=== PATIENT | male | born 1960 | race Caucasian/White ===

== ENCOUNTER 2018-01-26 01:36 | Inpatient (IN) | payer OTHER ==
[2018-01-25 14:03] LABS: INR 1.01
--- NOTE | 2018-01-25 14:44 | RADIOLOGY IMAGING REPORT ---
[place] [facility] [place] NAME: Nilton Bowling : 1960 MR: [id number] V: [id number] EXAM DATE: ORDERING PHYSICIAN: ROCIO PUENTES TECHNOLOGIST: Location: [facility] Patient: Nilton Bowling : 1960 Visit/Account:[id number] Date of Sevice: 01/25/2018 LEGS BILAT STANDING HIPS-ANKLE Indication: Preoperative. Comparison: None. Findings: Right leg length: 91.6 cm. This is measured from the cephalad portion of the femoral head to the tib ial distal articular surface. Right femur measurement from the superior margin of the femoral head t o the medial femoral condyle is 51.2 cm.. The right tibia measures 39.6 cm from the medial tibial pl ateau to the medial tibial plafond. Left leg measurement: 87.2 cm. The left femur measures 48.8 cm from the superior margin of the left femoral head to the medial femoral condyle. The left tibia measures 38.4 cm from the medial tibial p lateau to the medial tibial plafond. Severe degenerative changes are seen in the left knee joint. There are postoperative changes from a right total knee arthroplasty. Impression: Leg length as above. Report Dictated By: Rafael Alves at 01/25/2018 2:34 PM Report E-Signed By: Rafael Alves at 01/25/2018 2:40 PM WSN:[id number]
[2018-01-26] VITALS (13 sets, daily range): BP systolic 106–152; BP diastolic 44–86
[~2018-01-26] VITALS: Ht 175.3 cm; Wt 120.2 kg
[~2018-01-26 01:36] MED LIST: ACET-1966 PO; AMLO-99 PO; ATEN-1 PO; ATOR40TA24 PO; BUPR-136 PO; CEPH500T7 PO; CITA-145 PO; HYDR-385 PO; LISI-374 PO; METO50TA19 PO; MULT1CAP59 PO; RANI-366 PO
[2018-01-26] MEDS ORDERED: MIDAZOLAM 2 MG/2 ML VIAL IVP PRN (13:00)
[2018-01-26] MEDS ORDERED: cloNIDine EPIDUR INJ 100MCG/ML 40 MCG, ROPIVACAINE 0.5% 20 ML VIAL 25 ML, EPINEPHrine H... INJ ONE (13:00)
[2018-01-26] MEDS ORDERED: CELECOXIB 200 MG CAP PO ONE (13:00)
[2018-01-26] MEDS ORDERED: PREGABALIN 150 MG CAPSULE PO ONE (13:00)
[2018-01-26] MEDS ORDERED: LIDOCAINE/SOD BICARB 8.4% SYR ID ONE (13:00)
[2018-01-26] MEDS ORDERED: ACETAMINOPHEN 500 MG TAB PO ONE (13:00)
[2018-01-26] MEDS ORDERED: NORMOSOL R SOLN(*) 1000 ML BAG 1,000 ML IV PRN (13:00)
[2018-01-26] MEDS ORDERED: TRANEXAMIC AC 1000 MG/10ML SDV 1,000 MG in DEXTROSE 5% 50 ML BAG 50 ML IV ONE (13:00)
[2018-01-26] MEDS ORDERED: PROPOFOL EMUL(*) 10MG/ML 20 ML 20 ML ONE (13:01)
[2018-01-26] MEDS ORDERED: fentaNYL CITR 250 MCG/5 ML AMP ONE (13:01)
[2018-01-26] MEDS ORDERED: LIDOCAINE 2% IV 100 MG/5ML SYR ONE (13:01)
[2018-01-26] MEDS ORDERED: VANCOMYCIN(*) 1 GM VIAL 1 GM, VANCOMYCIN HCL 0.750 GM VIAL 0.75 GM in NS(*) 0.9% 250 ML... IVPB ONE (13:05)
[2018-01-26] MEDS ORDERED: BUPIVACAINE 0.5% INJ 30ML VIAL ONE (15:00)
[2018-01-26] MEDS ORDERED: EPINEPHrine HCL 1 MG/ML AMP ONE (15:15)
[2018-01-26] MEDS ORDERED: DEXAMETHASONE SOD PHOS 10MG/ML ONE (15:17)
[2018-01-26] MEDS ORDERED: ONDANSETRON 4 MG/2 ML VIAL ONE (15:17)
[2018-01-26] MEDS ORDERED: KETAMINE HCL 200 MG/20 ML MDV ONE ×2 (15:55→16:50)
[2018-01-26] MEDS ORDERED: fentaNYL CITR 100 MCG/2 ML AMP ONE (17:14)
[2018-01-26] MEDS ORDERED: diphenhydrAMINE 25 MG CAP PO PRN (19:20)
[2018-01-26] MEDS ORDERED: FLUSH 10 ML SYR IVP PRN (19:20)
[2018-01-26] MEDS ORDERED: NALOXONE HCL 0.4 MG/ML VIAL IVP PRN (19:20)
[2018-01-26] MEDS ORDERED: ONDANSETRON 4 MG/2 ML VIAL IVP PRN (19:20)
[2018-01-26] MEDS ORDERED: PROMETHAZINE 25 MG/ML 1 ML AMP IVP PRN (19:20)
[2018-01-26] MEDS ORDERED: KCL/D5LR 20 MEQ/1000 ML PREMIX 1,000 ML IV PRN (19:20)
[2018-01-26] MEDS ORDERED: MAGNESIUM CITRATE 300 ML BTL PO PRN (19:20)
[2018-01-26] MEDS ORDERED: MORPHINE SULFATE 30 MG PCA IV PRN (19:20)
[2018-01-26] MEDS ORDERED: ACETAMINOPHEN 500 MG TAB PO PRN (19:20)
--- NOTE | 2018-01-26 19:25 | RADIOLOGY IMAGING REPORT ---
[place] [facility] [place] Nilton Bowling : 1960 MR: [id number] V: [id number] EXAM DATE: ORDERING PHYSICIAN: ROCIO PUENTES TECHNOLOGIST: Location: [facility] - [place], [place] Patient: Nilton Bowling : 1960 Visit/Account:[id number] Date of Sevice: 01/26/2018 INDICATION: . Postop DATE: 01/26/2018 7:21 PM. TECHNIQUE: KNEE LIMITED LEFT COMPARISON: Radiographs January 25, 2018 FINDINGS: Status post total knee arthroplasty. The hardware appears appropriately aligned without thalia dence of periprosthetic fracture. Soft tissue gas is as expected postoperatively. IMPRESSION: Expected appearance status post total knee arthroplasty. Report Dictated By: Margarito Duggan MD at 01/26/2018 7:21 PM Report E-Signed By: Margarito Duggan MD at 01/26/2018 7:23 PM WSN:[id number]
--- NOTE | 2018-01-26 19:33 | OPERATIVE REPORT 1 ---
EVENT DATE: January 26, 2018 SURGEON: Rony Gillespie MD ANESTHESIOLOGIST: Neftaly Osorio MD ANESTHESIA: General plus Duramorph spinal. PERSONNEL ASSISTANT: Lan Gibbs PA-C PREOPERATIVE DIAGNOSIS Left knee degenerative joint disease, status post prior complex trauma with a tibia-fibula fracture and distal femoral fracture with multiple subsequent surgeries resulting in medially deviated and anteriorly deviated femoral condyle as a malunion in association with good alignment of the tibia with multiple shelves of bony irregularities in the metaphysis. POSTOPERATIVE DIAGNOSIS Left knee degenerative joint disease, status post prior complex trauma with a tibia-fibula fracture and distal femoral fracture with multiple subsequent surgeries resulting in medially deviated and anteriorly deviated femoral condyle as a malunion in association with good alignment of the tibia with multiple shelves of bony irregularities in the metaphysis. PROCEDURE PERFORMED Left total knee arthroplasty using an atypical intramedullary approach through the lateral femoral condyle with revision stem of tibia due to irregularity of metaphysis (modifier for additional complexity). ESTIMATED BLOOD LOSS 150 INTRAVENOUS FLUIDS Crystalloid 1700, no colloid. TOURNIQUET TIME 118 minutes SPECIMENS No specimens. COMPLICATIONS No complications. IMPLANTS USED Attune femoral size 8 left, cemented, posterior stabilized femur. Size 8, cemented tibial rotating platform baseplate, revision base. A 35 mm anatomic patella. A size 8 x 8 mm rotating platform, posterior stabilized insert. SUMMARY OF PROCEDURE The patient was brought into the operating room and was placed on the OR table in the seated position. He was given a spinal and then placed in the supine position where he received general anesthetic. The left lower extremity was prepped and draped in the usual sterile fashion. We exsanguinated the limb and inflated the tourniquet. We utilized the anterior previous incision. He had multiple incisions on his leg. This was taken down through skin and subcutaneous tissue and into the capsule by a medial parapatellar arthrotomy. Fluid was clear. There was abundant arthritic change with large osteophytes. 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 We had used long-plate films to gauge a 6 mm cut, but it appeared that to get intramedullary guidance, we would need to go directly through the lateral femoral condyle and somewhat more posterior than normal, so a drill hole was created here, and we applied the femoral gilbert which had good transit directly off the shaft. With this in place, we then set the cutting block to cut 9 mm off the end of the bone, but of course, it was laterally translated, so we set the block and then placed additional drill pins throughout the central part of the knee so it would stabilize even without lateral support. Once this was done , we made our distal femoral cut at 9 mm, cutting 6 degrees off the axis. Cutting block confirmed that it was flat. We then excised a large part of the fat pad and some meniscus tissue that was very tight. There was a lot of scar tissue throughout the joint. There was abundant osteophyte formation over the femoral condyles and in the notch. The ACL had been divided, and the lateral patellofemoral ligament was also divided, but he was still quite tight. We took great care to avoid damage to the patellar tendon as it was at risk with the degree of tightness that he had. We then sized the knee, but here again, this was a challenge. The normal sizing tool would not reach the femoral shaft as it was too far posterior relative to the anteriorly transposed portion of condyle, so we had to actually gauge the size of the femur using trial blocks and cuts. We used the trial block after sizing with the actual trials. Based on the condylar size, we selected an 8. It appeared that the 8 would be adequate for tgzjsz-ca-[id number] dimension, but it would probably be a bit tall anterior to posterior, especially considering the position of the condyles. In any case, we made our distal cut, but then moved to the tibia so we could check our extension and flexion blocks. Intramedullary guidance was obtained through the tibia. Palpating through the skin, it was a bit challenging to get in because there were multiple layers of what appeared to be cortical bone down inside the medullary canal and metaphysis. We did punch down through it and then set rotation. When we used the slotted guide to check our position, the eburnated medial side was selected as our first landmark. We selected 2 mm below this, but that was not even close to deep enough on the lateral side. In fact, it appeared that both medial and lateral sides were almost identical, so we ended up selecting 8 mm cuts off both sides, which was actually quite challenging because of the amount of scar tissue along the lateral flange of the tibia. Once we had this completed, we were able to lift the femur up using a suitcase handle retractor and cleared the posterior tissue where there was quite a bit of bony spur and loose bodies. With this completed, we then checked our extension and flexion blocks. The extension block looked like it was set quite nicely for a 7 to 8 mm insert, but when we went into flexion, it was clearly quite loose, and that is why we did check it in this technique. Because we had the capacity to move the femur quite a ways posteriorly because of the anteriorly transposed condyles , we ended up selecting an 8 for the lezkxz-fh-[id number] dimension, but moving it inferiorly a moderate amount so that we could close the flexion gap. Once we had trialed this a few times, we then made our femoral cuts to coordinate. It was still clearly not cutting enough of the femur anteriorly and posteriorly compared to what we normally see, but it would give good stability and, therefore, we used this. We trialed. It looked well, so we drilled our lug holes, and then we also cut the box for the posterior stabilized elements. At this point, we then completed the tibial cut. It looked like a size 8 would be best. Because we felt that he was young enough to be using this quite a bit, in the event that it became loose later, but it only involved the femur, if we already had a revision stem on the tibia, then we could use it without removing it. In addition to that, it would give us the benefit of getting the stem directly cross all the irregular bone in the metaphysis of the tibia. Initially when we tried drilling for the tibial stem, it would not pass, but then we were able to punch through these cortical fragments that were inside the medullary canal, and we got down to the full depth. We trialed, and it looked like an 8 would fit well. It seemed like we had to adjust it for the posterior gap quite nicely since he was relatively stable. He still was a little bit looser in flexion than in extension, but he came to nice extension with good stability at 20 degrees and at zero. The patella measured 23. We cut 9.5 off and then placed an anatomic trial 35 after drilling lug holes. With all trials in place and an 8 mm insert, he seemed to have good tracking and good stability. Consequently, these implants were removed, and we prepared to cement. Blocks were placed at the tibia and the femur to minimize extrusion of cement down the canal. We irrigated and then mixed cement. The cement was packed deep down inside the medullary canal for the stem and then along the margins of the surface, and we impacted it into position and held pressure. We then began to prepare for the femur, but oddly, the cement began to polymerize at about about 7-1/2 minutes. It is possible we could have gone throughout the rest of this implant without problem, but it looked to me like we would probably run out of time, and consequently, I asked to mix a second batch, and then we finished the femur and the patella. With this complete, we waited for polymerization and then let the tourniquet down at 118 minutes. Additional TXA was given. The wound was irrigated, and then we controlled bleeding with cautery. We trialed with the 8, and it looked like that was a good fit, so we placed the final 8 mm PS RP insert. After final irrigation, we closed with #1 Vicryl for the capsular closure and then used 3-0 Vicryl and 4-0 Monocryl for the skin closure. He was given a dry, sterile dressing and an anterior Dermabond strip. He was then awakened and transferred to the recovery area in stable condition. SHAVON
[2018-01-26] MEDS ORDERED: ACET-2146 PO (19:57)
[2018-01-26] MEDS ORDERED: ATEN-1 PO (20:09)
--- NOTE | 2018-01-26 20:34 | Hospitalist Progress Note ---
Subjective Progress Notes Subjective 57 yr old male with Left TKA today due to previous trauma and DFD. PMH is significant for hypertension, hyperlipidemia, depression and anxiety, overweight , previous smoker. Physical Exam Vital Signs Date Time Temp Pulse Resp B/P (MAP) Pulse Ox O2 Delivery O2 Flow Rate FiO2 01/26/18 19:45 89 16 94 01/26/18 12:44 97.7 139/84 (102) Room Air Intake and Output 01/27/18 07:00 Intake Total 4000 ml Output Total 100 ml Balance 3900 ml Intake Oral 500 ml IV Total 1750 ml Other 1750 ml Output Estimated Blood Loss 100 ml General Appearance: Alert, Awake, No Acute Distress, Afebrile Cardiovascular: Regular Rate and Rhythm, Other (S1S2 are normal. No murmur, gallop or rub. ) Respiratory: Clear to Auscultation GI: Soft and Non-Tender Extremities: Pulses, Perfused Psych: Alert & Oriented X3, Appropriate Mood & Affect Result Diagram: 01/26/18 8104 Assessment and Plan Problems: (1) Status post total knee replacement, left Status: Acute Assessment & Plan: See Dr. Gillespie for details. Anticoagulation as per Dr. Escudero with Aspirin. (2) Hypertension Status: Chronic Assessment & Plan: Well controlled with three meds including atenolol 100 mg / day, amlodipine 10 mg a day, and lisinopril 40 mg a day. He takes these all in the morning. Will monitor BP carefully and resume meds when BP allows. (3) Hyperlipemia Status: Chronic Assessment & Plan: Continue lipitor 40 mg daily. (4) Depression with anxiety Status: Chronic Assessment & Plan: Contrinue celexa 20 mg daily. He has zofran ordered for nausea so will discontinue that due to risk of prolonged QT and arrhythmias. (5) GERD (gastroesophageal reflux disease) Status: Chronic Assessment & Plan: Continue zantac prn. (6) H/O major orthopedic surgery Status: Chronic Assessment & Plan: Multiple (7) COPD (chronic obstructive pulmonary disease) Status: Chronic Assessment & Plan: Due to smoking. Quit 09/10. Will follow O2 sats carefully and also monitor for sleep apnea. Time Spent on Plan of Care: > 30 min FAUSTINA HYMAN MD FACP Jan 26, 2018 20:34
[2018-01-26] MEDS: RANITIDINE HCL 150 MG TAB PO PRN (23:38)
[2018-01-27] VITALS (8 sets, daily range): BP systolic 100–115; BP diastolic 58–85; Ht 175.3 cm; Wt 120.2 kg
[2018-01-27 06:23] LABS: PLATELET COUNT, AUTOMATED 134 K/uL (150-450)
[2018-01-27] MEDS: LISINOPRIL 20 MG TAB PO SCH (08:33)
[2018-01-27] MEDS: ATENOLOL 50 MG TAB PO SCH (08:33)
[2018-01-27] MEDS: amLODIPine BESYL(*) 5 MG TAB PO SCH (08:33)
[2018-01-27] MEDS: ASPIRIN 325 MG TAB PO SCH (09:20)
--- NOTE | 2018-01-27 11:12 | Hospitalist Progress Note ---
Subjective Progress Notes Subjective 57M admitted after L TKA. Doing well working with pt this am in [facility]. Patient Complains of: Neurological: No: Syncope, Confusion Cardiovascular: No: Chest Pain, Palpitations Respiratory: No: Cough, Congestion Gastrointestinal: No Nausea Physical Exam Vital Signs Date Time Temp Pulse Resp B/P (MAP) Pulse Ox O2 Delivery O2 Flow Rate FiO2 01/27/18 08:06 83 01/27/18 07:57 Nasal Cannula 2.0 01/27/18 07:24 98.0 82 16 115/71 (86) Intake and Output 01/28/18 07:00 Intake Total 400 ml Output Total 200 ml Balance 200 ml Intake Oral 400 ml Output Urine Total 200 ml # Voids 1 General Appearance: Alert, Awake, No Acute Distress Neuro: No Gross deficits Eyes: PERRLA ENT: Normal Neck: No Masses Cardiovascular: Normal Rhythm & Peripheral Pulses Respiratory: No Respiratory Distress Chest: No Tenderness : Normal Lymph: Cervical Nodes Benign Musculoskeletal: No Weakness/Pain Extremities: Soft and Non Tender (L knee wrapped), Warm Integumentary: Skin Intact without Lesion / Mass Psych: Alert & Oriented X3 Result Diagram: 01/27/18 0519 Assessment and Plan Problems: (1) Status post total knee replacement, left Status: Acute Assessment & Plan: See Dr. Gillespie for details. Anticoagulation as per Dr. Escudero with Aspirin. (2) Hypertension Status: Chronic Assessment & Plan: Well controlled with three meds including atenolol 100 mg / day, amlodipine 10 mg a day, and lisinopril 40 mg a day. He takes these all in the morning. Will monitor BP carefully and resume amlodipine and lisinopril when BP allows. Resume BB today. (3) Hyperlipemia Status: Chronic Assessment & Plan: Continue lipitor 40 mg daily. (4) Depression with anxiety Status: Chronic Assessment & Plan: Contrinue celexa 20 mg daily. (5) GERD (gastroesophageal reflux disease) Status: Chronic Assessment & Plan: Continue zantac prn. (6) H/O major orthopedic surgery Status: Chronic Assessment & Plan: Multiple (7) COPD (chronic obstructive pulmonary disease) Status: Chronic Assessment & Plan: Due to smoking. Quit 09/10. Exam Sepsis Risk: No Definite Risk NICOLETTE IRVIN DO Jan 27, 2018 11:12
[2018-01-27] MEDS ORDERED: ATENOLOL 50 MG TAB PO ONE (11:15)
[2018-01-27] MEDS: RANITIDINE HCL 150 MG TAB PO PRN (15:27)
[2018-01-27] MEDS: CITALOPRAM HYDROBROM 20 MG TAB PO SCH (21:22)
[2018-01-28 04:28] VITALS: BP 108/64
[2018-01-28 05:28] LABS: PLATELET COUNT, AUTOMATED 113 K/uL (150-450)
[2018-01-28 07:06] VITALS: BP 101/65
[2018-01-28] MEDS: LISINOPRIL 20 MG TAB PO SCH (07:59)
[2018-01-28] MEDS: amLODIPine BESYL(*) 5 MG TAB PO SCH (07:59)
[2018-01-28] MEDS ORDERED: ASPI-757 PO (08:13)
[2018-01-28] MEDS: ATENOLOL 50 MG TAB PO SCH (08:58)
[2018-01-28] MEDS: ASPIRIN 325 MG TAB PO SCH (09:06)
[2018-01-28] MEDS: CITALOPRAM HYDROBROM 20 MG TAB PO SCH (09:06)
--- NOTE | 2018-01-28 09:47 | Hospitalist Progress Note ---
Subjective Progress Notes Subjective No cp/sob. Physical Exam Vital Signs Date Time Temp Pulse Resp B/P (MAP) Pulse Ox O2 Delivery O2 Flow Rate FiO2 01/28/18 07:06 97.9 66 18 101/65 (77) 89 Nasal Cannula 0.5 General Appearance: Alert, Awake, No Acute Distress Result Diagram: 01/28/18 0508 01/28/18 0508 Assessment and Plan Problems: (1) Status post total knee replacement, left Status: Acute Assessment & Plan: See Dr. Gillespie for details. ASA 325mg a day for 30 days for blood clot prevention. (2) Hypertension Status: Chronic Assessment & Plan: Well controlled with three meds including atenolol 100 mg / day, amlodipine 10 mg a day, and lisinopril 40 mg a day. He takes these all in the morning. BP still too low to restart. He has been instructed to check his blood pressure every morning with his cuff and add back in a step gramajo fashion. See orders. This was explained to the patient and he expressed understanding. (3) Hyperlipemia Status: Chronic Assessment & Plan: Continue lipitor 40 mg daily. (4) Depression with anxiety Status: Chronic Assessment & Plan: Contrinue celexa 20 mg daily. (5) GERD (gastroesophageal reflux disease) Status: Chronic Assessment & Plan: Continue zantac prn. (6) H/O major orthopedic surgery Status: Chronic Assessment & Plan: Multiple (7) COPD (chronic obstructive pulmonary disease) Status: Chronic Assessment & Plan: Due to smoking. Quit 09/10. Exam Sepsis Risk: No Definite Risk SHAMA ROSEN MD Jan 28, 2018 09:47
[2018-01-28] MEDS ORDERED: OXYC5TAB38 PO (09:58)
== END 2018-01-28 10:40 | disposition home or self-care (01) | DRG 470 ==
LOC: OR 01:36 → MED 19:45
PROVIDERS: ADMIT Orthopaedic Surgery Hand Surgery; ATTEND Orthopaedic Surgery Hand Surgery
PROC: 0SRD0JZ Replacement of Left Knee Joint with Synthetic Substitute, Open Approach (ICD-10-PCS; principal; 2018-01-26 15:02)
DX: M17.32 Unilateral post-traumatic osteoarthritis, left knee (principal); S72.41 Unspecified condyle fracture of lower end of femur; M25.762 Osteophyte, left knee; E66.01 Morbid (severe) obesity due to excess calories; I10 Essential (primary) hypertension; K21.9 Gastro-esophageal reflux disease without esophagitis; E78.5 Hyperlipidemia, unspecified; F32.9 Major depressive disorder, single episode, unspecified; J44.9 Chronic obstructive pulmonary disease, unspecified; Z68.39 Body mass index [BMI] 39.0-39.9, adult; Z90.49 Acquired absence of other specified parts of digestive tract; Z87.891 Personal history of nicotine dependence
CPT/HCPCS: 36415; 77073; 82310; 82374; 82435; 82565; 82947; 84132; 84295; 84520; 85014; 85018; 85025; 85610; 86850; 86900; 86901; 97161; C1713; C1776; J0171; J0735; J1100; J1885; J2001; J2250; J2405; J2704; J2795; J3010; J3370; J3490; J7050; J7060; Q0163

== ENCOUNTER 2018-07-27 02:13 | Inpatient (IN) | payer OTHER ==
[2018-07-26 15:15] LABS: INR 0.96
[2018-07-27] VITALS (12 sets, daily range): BP systolic 124–151; BP diastolic 77–103
[~2018-07-27] VITALS: Ht 177.8 cm; Wt 122.9 kg
[~2018-07-27 02:13] MED LIST changes: +ACET-2146 PO; +AMLO-127 PO; -AMLO-99 PO; +ASPI-757 PO; +OXYC5TAB38 PO
[2018-07-27] MEDS ORDERED: CELECOXIB 200 MG CAP PO ONE (06:15)
[2018-07-27] MEDS ORDERED: PREGABALIN 150 MG CAPSULE PO ONE (06:15)
[2018-07-27] MEDS ORDERED: LIDOCAINE/SOD BICARB 8.4% SYR ID ONE (06:15)
[2018-07-27] MEDS ORDERED: ACETAMINOPHEN 500 MG TAB PO ONE (06:15)
[2018-07-27] MEDS ORDERED: ROPIVACAINE/EPI/CLONIDINE/KET 50 ML SYRINGE INJ ONE (06:15)
[2018-07-27] MEDS ORDERED: MIDAZOLAM 2 MG/2 ML VIAL IVP PRN (06:15)
[2018-07-27] MEDS ORDERED: ceFAZolin(*) 2GM/D5W 50ML 50 ML IVPB ONE (06:15)
[2018-07-27] MEDS ORDERED: NORMOSOL R SOLN(*) 1000 ML BAG 1,000 ML IV PRN (06:15)
[2018-07-27] MEDS ORDERED: TRANEXAMIC AC 1000 MG/10ML SDV 1,000 MG in DEXTROSE 5% 50 ML BAG 50 ML IV ONE (06:15)
[2018-07-27] MEDS ORDERED: FAMOTIDINE 20 MG TAB PO ONE (07:10)
[2018-07-27] MEDS ORDERED: VANCOMYCIN(*) 1 GM VIAL 2 GM in NS(*) 0.9% 250 ML BAG 250 ML IVPB ONE (07:10)
[2018-07-27] MEDS ORDERED: NS 0.9% IVPB ONE (07:10)
[2018-07-27] MEDS ORDERED: VANCOMYCIN IVPB ONE (07:10)
[2018-07-27] MEDS ORDERED: amLODIPine BESYL(*) 5 MG TAB PO SCH (07:10)
[2018-07-27] MEDS ORDERED: MIDAZOLAM 2 MG/2 ML VIAL ONE (07:43)
[2018-07-27] MEDS ORDERED: ONDANSETRON 4 MG/2 ML VIAL ONE (09:06)
[2018-07-27] MEDS ORDERED: ROCURONIUM BROM 10 MG/ML 10 ML ONE (09:06)
[2018-07-27] MEDS ORDERED: DEXAMETHASONE SOD PHOS 10MG/ML ONE (09:06)
[2018-07-27] MEDS ORDERED: PROPOFOL EMUL(*) 10MG/ML 20 ML 20 ML ONE (09:06)
[2018-07-27] MEDS ORDERED: SUGAMMADEX SOD 200 MG/2 ML SDV ONE (09:53)
[2018-07-27] MEDS ORDERED: fentaNYL CITR 100 MCG/2 ML AMP ONE ×2 (10:22→10:39)
[2018-07-27] MEDS ORDERED: OXYC10TA67 PO (10:55)
--- NOTE | 2018-07-27 11:10 | RADIOLOGY IMAGING REPORT ---
FACILITY: [facility] [place] PATIENT NAME: Nilton Bowling : 1960 MR: [id number] V: [id number] EXAM DATE: ORDERING PHYSICIAN: ROCIO PUENTES TECHNOLOGIST: Location: [facility] Patient: Nilton Bowling : 1960 Visit/Account:[id number] Date of Sevice: 07/27/2018 Exam type: SHOULDER 1 VIEW RIGHT History: S/P R SHOULDER JULIETTE, CONVERSION REVERSE TSA Comparison: None. Findings: A single AP view of the right shoulder demonstrates a reversed right shoulder arthroplasty that appea rs in good anatomic alignment on this single AP view. There is blunting of the right costophrenic an gle and small amount linear stranding in the visualized right lung base. These changes could be scientific aide nicole although a small right pleural effusion and right basilar airspace consolidation not excluded. IMPRESSION: 1. As above Report Dictated By: Ebonie Guajardo MD at 07/27/2018 11:03 AM Report E-Signed By: Ebonie Guajardo MD at 07/27/2018 11:04 AM WSN:[id number]
--- NOTE | 2018-07-27 11:18 | OPERATIVE REPORT 1 ---
EVENT DATE: July 27, 2018 SURGEON: Rony Gillespie MD ANESTHESIOLOGIST: Dago Brown MD ANESTHESIA: General plus block. ENSEMBLE MEMBER: MARIVEL Khan PREOPERATIVE DIAGNOSIS Status post cuff tear arthropathy with CTA head yielding good range of motion, but persistent pain. POSTOPERATIVE DIAGNOSIS Status post cuff tear arthropathy with CTA head yielding good range of motion, but persistent pain. PROCEDURE PERFORMED Explantation of CTA humeral head with conversion to reverse total shoulder arthroplasty including placement of Metaglene and Glenosphere and implantation of polyethylene +6 cup on humerus (32577). ESTIMATED BLOOD LOSS 50. IV FLUIDS 1200 Crystalloid, no colloid. TOURNIQUET TIME None. SPECIMENS None. COMPLICATIONS None. IMPLANTS USED Metaglene plus 4 screws, 3 locking, 1 nonlocking with an eccentric 42 Glenosphere and a 42 +6 cup. DESCRIPTION OF PROCEDURE The patient was brought into the operating room and placed on the OR table in supine position. He was given a scalene block and a general anesthetic. He was placed in the beach chair position and his right shoulder was prepped and draped in the usual sterile fashion, free draping the arm. He had previously had an anterolateral superior approach (Shyann type) because of prior incisions, so we did reopen this again, split the deltoid anterior from lateral and did only a very small amount of dissection to remove deltoid from the acromion anteriorly. He had already had quite a bit of procedural work on the subacromial space due to two prior rotator cuff repairs before his index surgery on the CTA head and we do not want to take any more of this. The head was dislocated anterosuperiorly and we began to work around it to free up any soft tissue. We took care to maintain the subscapularis. Eventually, we got adequate exposure and began to work on removing the head to separate the Hadley taper, but this was surprisingly difficult. I started with a tamp to hit it with a hammer but that was not working, so we tried an extraction tool with a slap hammer and repeatedly hit on this and I think it did probably loosen a little bit, but it did not come off, but when I returned to the use of a tamp and a mallet, it did actually separate at the Hadley taper. The other portion of the implant in the stem was still intact and there was no fracture. We retracted it out of the way and then began to work on the glenoid doing circumferential stripping of the tissue. The very inferior most area near where then axillary nerve would be was left intact, but we did have enough release to get the rabbit ear retractor beneath it and to expose the glenoid. The wire was placed. We milled it down and then did the superior milling and then placed the drill centrally, after which the Metaglene was placed and we did three locking screws and one nonlocking screw. After this, we prepared to place the Glenosphere but this was a substantial challenge. We tried several different retractors to keep it sufficiently out of the way to allow placement of the Glenosphere, since the humeral implant was still in place. We were able to get this in and secure it down eccentric 42 Glenosphere. We then trialed a +3 and a +6. It looked like the +6 fit the best and then we cleaned the wound one more time, having irrigated as we had throughout the case and placed the +6 final implant. This was then reduced and the we irrigated one more time, did a deltoid repair with 2 transosseous drill holes using FiberWire suture, followed by 0 Vicryl suture to close the deltoid and the pseudocapsule in one layer. The wound was irrigated one more time before closing subcutaneous tissue with 3-0 Vicryl, then a 4-0 Monocryl completed the closure with a liquid adhesive applied. He was awakened and transferred to the recovery area in stable condition. The plan was for him to go home, but we could convert this to a short stay if he chose to do so. SHAVON
[2018-07-27] MEDS ORDERED: ALBUTEROL/IPRATROPIUM 3 ML NEB NEB ONE (12:50)
[2018-07-27] MEDS ORDERED: MAGNESIUM CITRATE 300 ML BTL PO PRN (13:55)
[2018-07-27] MEDS ORDERED: FLUSH 10 ML SYR IVP PRN (13:55)
[2018-07-27] MEDS ORDERED: ONDANSETRON 4 MG/2 ML VIAL IVP PRN (13:55)
[2018-07-27] MEDS ORDERED: ACETAMINOPHEN 500 MG TAB PO PRN (13:55)
[2018-07-27] MEDS ORDERED: KCL/D5LR 20 MEQ/1000 ML PREMIX 1,000 ML IV PRN (13:55)
[2018-07-27] MEDS ORDERED: PROMETHAZINE 25 MG/ML 1 ML AMP IVP PRN (13:55)
--- NOTE | 2018-07-27 14:00 | NUR ---
1125 SBAR REPORT FROM Woo DORAN RN. VSS, ELEVATED BP CONSISTENT WITH PRE-OP, 750ML UP, IV NOT RUNNING, FLUSHED IV, PATENCY RETURNED. 1135 SBAR REPORT TO Oleg HAMILTON, RN 1210 RESUMED CARE FOR PT, SBAR FROM Constantine ELLIS, RN 1230 ORTHOSTATICS STABLE, PT UP TO VOID, STEADY ON FEET, NEW ICE APPLIED TO SITE, PT CONTINUES TO DROP IN O2 ON 3LNC [address] MARINA RE: PLAN FOR O2, VO FOR AEROBIKA AND DUONEB, ORDERED 1300 RESPIRATORY AT BEDSIDE, NOT IMPROVEMENT NOTED 1315 VSS, PT CONTINUES TO DROP TO 87% ON 3L, TOLERATING MORE PUDDING AND APPLE JUICE 1330 BUMPED UP TO 4L, PT DOES NOT DROP, STAYS LOW 90S. SPOKE WITH DR. PUENTES AND DR. MARINA ABOUT ADMITTING PT. BOTH AGREE. PROCESS INITIATED BY Woo NANCE AND Oleg HAMILTON, RNS 1345 PCS TO FLOOR FOR ROOM AND GUEST HOUSE FOR PT'S MOTHER
--- NOTE | 2018-07-27 14:39 | NUR ---
1410 CALLED REPORT TO DONALD HEIN, REASSESSED, PREPARED FOR TRANSFER. H/H RESULTS REVIEWED, WNL 1420 PT TRANSFERRED VIA CART BY Oleg HAMILTON TO MED SURG ROOM. ALL BELONGINGS WITH PT
[2018-07-27] MEDS ORDERED: RANITIDINE HCL 150 MG TAB PO PRN (16:30)
--- NOTE | 2018-07-27 16:38 | Hospitalist Consultation ---
History of Present Illness Requesting Physician Dr. Gillespie Reason for Consult Medical Management Chief Complaint s/p right reverse total shoulder History of Present Illness He was admitted s/p right reverse total shoulder. It is reported the surgery went well and without complication. History Problems: (1) Hypertension Status: Chronic (2) Depression with anxiety Status: Chronic (3) GERD (gastroesophageal reflux disease) Status: Chronic (4) Hyperlipemia Status: Chronic Home Meds Reported Medications Oxycodone Hcl 10 Mg Tab (OXYCODONE HCL 10 MG TAB) 10 Mg Tablet, 5-10 MG PO Q4-6H PRN for PAIN, TAB 07/27/18 Acetaminophen 500 Mg Tab (ACETAMINOPHEN EXTRA STRENGTH) 500 Mg Tablet, 1000 MG PO Q4-6H PRN for PAIN, TAB 01/26/18 Bupropion Hcl (BUPROPION HCL SR) 150 Mg Tablet.er, 150 MG PO BID for TO HELP QUIT SMOKING 01/22/18 Ranitidine Hcl (ZANTAC) 150 Mg Tablet, 150 MG PO BID PRN for GAS/HEARTBURN, TAB 01/22/18 Multivitamin (MULTIVITAMINS) 1 Each Capsule, 1 EACH PO QDAY, CAPSULE 02/28/17 Citalopram Hydrobromide (CITALOPRAM HBR) 20 Mg Tablet, 20 MG PO QDAY, #5 TAB 12/21/16 Lisinopril (LISINOPRIL) 40 Mg Tablet, 40 MG PO QDAY, TAB 12/21/16 Amlodipine Besylate (AMLODIPINE BESYLATE) 10 Mg Tablet, 1 TAB PO QDAY, TAB 12/21/16 Atorvastatin Calcium (LIPITOR) 40 Mg Tablet, 1 TAB PO QDAY, TAB 12/21/16 Allergies: Coded Allergies: No Known Drug Allergies (Unverified , 12/21/16) Patient History: FH: HTN (hypertension) MOTHER FH: esophageal cancer FATHER, , Age:60 years and older Heart valve abnormality BROTHER OR SISTER BROTHER OR SISTER Hx Smoking: Yes (1PPD X30YRS, QUIT AUGUST 2017 ) Smoking Status: Current: Every Day Smoker, Former Smoker Exposure to Second Hand Smoke?: Yes When Quit Tobacco?: AUGUST 2017 Caffeine Intake: Coffee, Soda Caffeine/Cups Per Day: 3/DAY Hx Alcohol Use: No Hx Substance Use Disorder: No Social Drug Use: Former History of IV Drug Use: No Review of Systems All Systems Reviewed/Normal: Yes, Except as Noted Exam Vital Signs Vital Signs Date Time Temp Pulse Resp B/P (MAP) Pulse Ox O2 Delivery O2 Flow Rate FiO2 07/27/18 16:28 99.0 102 16 88 Nasal Cannula 4.0 07/27/18 15:00 143/98 (113) General Appearance: Alert, Awake, No Acute Distress, Afebrile Neuro: No Gross deficits Cardiovascular: Regular Rate and Rhythm Respiratory: No Respiratory Distress, Clear to Auscultation Psych: Alert & Oriented X3, Appropriate Mood & Affect Medical Decision Making Data Points Result Diagram: 07/27/18 1423 Assessment and Plan Problems: (1) Status post reverse total arthroplasty of right shoulder Status: Acute Assessment & Plan: Followed by Dr. Gillespie. (2) Hypertension Status: Chronic Assessment & Plan: He is on chronic treatment with Lisinopril and Amlodipine. These have been restarted with hold parameters. (3) Depression with anxiety Status: Chronic Assessment & Plan: He is on chronic treatment with Citalopram. (4) GERD (gastroesophageal reflux disease) Status: Chronic Assessment & Plan: He is on chronic treatment with Ranitidine. (5) Hyperlipemia Status: Chronic Assessment & Plan: He is on chronic treatment with Atorvastatin. Venous Thromboembolism Antithrombotics Is Pt On Any Antithrombotics?: No Exam Sepsis Risk: No Definite Risk Problem Qualifiers (1) Hypertension: Hypertension type: essential hypertension Qualified Codes: I10 - Essential (primary) hypertension JORGE ALBERTO JAMESP Jul 27, 2018 16:38
[2018-07-27] MEDS ORDERED: diphenhydrAMINE 25 MG CAP PO PRN (21:00)
[2018-07-27] MEDS: buPROPion SR 150 MG TABCR PO SCH (21:34)
[2018-07-28 06:39] VITALS: BP 132/79
--- NOTE | 2018-07-28 08:13 | Hospitalist Progress Note ---
Subjective Progress Notes Subjective Doing very well post op with mild pain in shoulder. O2 sats are still a bit low off O2 but has not been OOB much as yet. Will go home on O2 if sats are not reasonable with activity. Physical Exam Vital Signs Date Time Temp Pulse Resp B/P (MAP) Pulse Ox O2 Delivery O2 Flow Rate FiO2 07/28/18 06:39 98.5 81 18 132/79 (96) 93 Room Air 07/27/18 20:00 4.0 Intake and Output 07/28/18 06:59 Intake Total 3084 ml Output Total 20 ml Balance 3064 ml Intake Oral 1184 ml IV Total 1900 ml Output Estimated Blood Loss 20 ml # Voids 4 General Appearance: Alert, Awake, No Acute Distress, Afebrile Respiratory: Other (No wheezing noted. Good expansion. ) Integumentary: Other (No cyanosis. ) Psych: Alert & Oriented X3, Appropriate Mood & Affect Result Diagram: 07/27/18 0704 Assessment and Plan Problems: (1) Status post reverse total arthroplasty of right shoulder Status: Acute Assessment & Plan: Followed by Dr. Gillespie. OK for home from our standpoint. Will use O2 at home if sats are low with activity. (2) Hypertension Status: Chronic Assessment & Plan: He is on chronic treatment with Lisinopril and Amlodipine. These have been restarted with hold parameters. (3) Depression with anxiety Status: Chronic Assessment & Plan: He is on chronic treatment with Citalopram. (4) GERD (gastroesophageal reflux disease) Status: Chronic Assessment & Plan: He is on chronic treatment with Ranitidine. (5) Hyperlipemia Status: Chronic Assessment & Plan: He is on chronic treatment with Atorvastatin. Time Spent on Plan of Care: < 30 min Exam Sepsis Risk: No Definite Risk Problem Qualifiers (1) Hypertension: Hypertension type: essential hypertension Qualified Codes: I10 - Essential (primary) hypertension FAUSTINA HYMAN MD FACP Jul 28, 2018 08:13
[2018-07-28 08:52] VITALS: Ht 177.8 cm; Wt 122.9 kg
[2018-07-28] MEDS ORDERED: ATORVASTATIN 40 MG TAB PO SCH (09:00)
[2018-07-28] MEDS ORDERED: CITALOPRAM HYDROBROM 20 MG TAB PO SCH (09:00)
[2018-07-28] MEDS ORDERED: LISINOPRIL 20 MG TAB PO SCH (09:00)
[2018-07-28] MEDS ORDERED: amLODIPine BESYL(*) 5 MG TAB PO SCH (09:00)
[2018-07-28] MEDS: buPROPion SR 150 MG TABCR PO SCH (09:35)
== END 2018-07-28 15:06 | disposition home or self-care (01) | DRG 483 ==
LOC: OR 02:13 → MED 14:35
PROVIDERS: ADMIT Orthopaedic Surgery Hand Surgery; ATTEND Orthopaedic Surgery Hand Surgery
PROC: 0RRJ0JZ Replacement of Right Shoulder Joint with Synthetic Substitute, Open Approach (ICD-10-PCS; principal; 2018-07-27 07:51)
DX: M19.011 Primary osteoarthritis, right shoulder (principal); J44.9 Chronic obstructive pulmonary disease, unspecified; K21.9 Gastro-esophageal reflux disease without esophagitis; F41.8 Other specified anxiety disorders; I10 Essential (primary) hypertension; E66.9 Obesity, unspecified; F17.210 Nicotine dependence, cigarettes, uncomplicated; E78.5 Hyperlipidemia, unspecified; Z68.38 Body mass index [BMI] 38.0-38.9, adult
CPT/HCPCS: 36415; 76942; 85014; 85018; 85610; 86850; 86900; 86901; 94640; 94667; 97165; A4565; C1713; C1776; J1100; J2250; J2405; J2704; J3010; J3370; J7050; J7060